=== PATIENT | male | born 1995 | race Caucasian/White ===

== ENCOUNTER 2018-10-27 22:42 | Emergency (ER) | payer BC ==
[2018-10-27 22:52] VITALS: BP 112/68; PULSE 71; TEMP 98.3; BMI 24.6
--- NOTE | 2018-10-27 23:06 | PDOC ---
Documentation entered by Nikolay Jones SCRIBE, acting as scribe for Sancho Paulino MD. Sancho Paulino MD: This documentation has been prepared by the Robert escalante Aiswarya, SCRIBE, under my direction and personally reviewed by me in its entirety. I confirm that the documentation accurately reflects all work, treatment, procedures, and medical decision making performed by me. History of Present Illness - General Chief Complaint: Laceration Stated Complaint: RT FOOT LAC Time Seen by Provider: 10/27/18 22:43 History Source: Patient Exam Limitations: No Limitations - History of Present Illness Initial Comments: 10/27/18 23:05 Assessment and plan: This is a 22-year-old male who comes in complaining of a laceration to the right heel bottom of his foot. Patient does have a small macerated laceration with no bleeding. Laceration was closed with Dermabond and patient discharged. Procedure note laceration repair with Dermabond Laceration was cleaned with peroxide and then closed with Dermabond Band-Aid was placed over the laceration 10/27/18 23:06 The patient is a 22 year old male, with no significant PMH, who presents to the emergency department with a right foot laceration that occurred today at 3pm. The patient states he jumped off his friends boat and hit the cleat of the boat with the bottom of his right foot. He reports mild bleeding and pain to the site of injury. Patient also mentions he was barefoot when the incident occurred. The patient denies any numbness or tingling. Denies any other injuries. Denies any difficulty with ambulation. PAST MEDICAL HISTORY: no significant history PAST SURGICAL HISTORY: no significant history FAMILY HISTORY: no pertinent history SOCIAL HISTORY: Pt lives with family and is employed. MEDICATIONS: reviewed ALLERGIES: As per nursing notes Adult ROS General: No fevers or chills, no weakness, no weight loss HEENT: No change in vision. No sore throat,. No ear pain CardioVascular: No chest pain or shortness of breath Respiratory:No cough, or wheezing. Gastrointestinal: no nausea, vomiting, diarrhea or constipation, No rectal bleeding Genitourinary: No dysuria, hematuria, or frequency Musculoskeletal: No joint or muscle pain or swelling Neurologic: No headache, vertigo, dizziness or loss of consciousness Psychiatric: nor depression Skin: +Right foot laceration Endocrine: no increased thirst or abnormal weight change Allergic: no skin or latex allergy All other systems reviewed and normal Basic PE GENERAL: The patient is awake, alert, and fully oriented, in no acute distress. HEAD: Normal with no signs of trauma. EYES: Pupils equal, round and reactive to light, extraocular movements intact, sclera anicteric, conjunctiva clear. EXTREMITIES: Normal range of motion, no edema. NEUROLOGICAL: Normal speech, normal gait. PSYCH: Normal mood, normal affect. SKIN:+ Right foot superficial laceration maceration of the bottom heel.No active bleeding. Past History - Past Medical History Allergies/Adverse Reactions: Allergies Allergy/AdvReac Type Severity Reaction Status Date / Time No Known Allergies Allergy Unverified 10/27/18 22:43 Home Medications: Ambulatory Orders Cetirizine HCl [Zyrtec -] 10 mg PO DAILY 10/27/18 *Physical Exam - Vital Signs Last Vital Signs Temp Pulse Resp BP Pulse Ox 98.3 F 71 16 112/68 99 10/27/18 22:47 10/27/18 22:47 10/27/18 22:47 10/27/18 22:47 10/27/18 22:47 *DC/Admit/Observation/Transfer Diagnosis at time of Disposition: Laceration of foot Qualifiers: Encounter type: initial encounter Laterality: right Qualified Code(s): S91.311A - Laceration without foreign body, right foot, initial encounter - Discharge Dispostion Disposition: HOME Condition at time of disposition: Stable Decision to Admit order: No - Referrals Referrals: Alex Jensen DO [Primary Care Provider] - - Patient Instructions Printed Discharge Instructions: DI for Laceration Repair With Dermabond Additional Instructions: Tylenol or Motrin as needed for the pain. read over and follow Dermabond instructions. Do not get the laceration wet for 72 hours and do not use any petroleum based products on an as it will cause the glue to, for early. Return to the emergency department immediately with ANY new, persistent or worsening symptoms. Continue any medications as previously prescribed by your physician. You should follow up with your primary doctor as soon as possible regarding today's emergency department visit. . Please make sure your doctor reviews the results of your emergency evaluation. Thank you for coming to the Emergency Department today for your care. It was a pleasure to see you today. Please note that your evaluation is INCOMPLETE until you follow-up with your doctor. - Post Discharge Activity
== END 2018-10-27 23:12 | disposition home or self-care (01) ==
LOC: FER 22:42
PROC: 0HQMXZZ Repair Right Foot Skin, External Approach (ICD-10-PCS; principal; 2018-10-27)
DX: S91.311A Laceration without foreign body, right foot, initial encounter (principal); X58.XXXA Exposure to other specified factors, initial encounter; Y93.9 Activity, unspecified; Y92.9 Unspecified place or not applicable
CPT/HCPCS: 99281-25